=== PATIENT | female | born 1985 | race Caucasian/White ===

== ENCOUNTER → 2017-07-01 | Outpatient (CLI) | payer OTHER ==
[2017-07-01 15:14] LABS: BASO % 0.4 % (0.0-1.0); EOS # 0.2 10^3/uL (0.0-0.50); EOS % 2.3 % (0.0-3.0); IMMATURE GRANULOCYTE % 0.2 % (0-0); LYMPH # 3.5 10^3/uL (1.5-4.5); LYMPH % 34.2 % (24.0-44.0); MEAN CORPUSCULAR HEMOGLOBIN 29.6 pg (27.0-33.0); MEAN CORPUSCULAR HGB CONC 33.7 g/dl (32.0-36.5); MEAN CORPUSCULAR VOLUME 87.9 fl (80.0-96.0); MONO # 0.7 10^3/uL (0.0-0.8); MONO % 7.2 % (0.0-5.0); NEUTROPHILS # 5.7 10^3/uL (1.8-7.7); NEUTROPHILS % 55.7 % (36.0-66.0); PLATELET COUNT, AUTOMATED 319 10^3/uL (150-450); RED CELL DISTRIBUTION WIDTH 12.1 % (11.5-14.5); WHITE BLOOD COUNT 10.2 10^3/uL (4.0-10.0)
[2017-07-01 15:32] LABS: FREE T4 1.04 NG/DL (0.76-1.46)
== END ==
LOC: M LAB 14:12
PROVIDERS: ATTEND Nurse Practitioner Women's Health
DX: R53.83 Other fatigue (principal)

== ENCOUNTER → 2017-11-25 | Outpatient (CLI) | payer OTHER | LOC: M WUC 16:07 | DX: J22 Unspecified acute lower respiratory infection (principal) | CPT/HCPCS: G0463 ==

== ENCOUNTER 2017-12-12 14:01 | Emergency (ER) | payer OTHER | END 2017-12-12 16:12 | disposition home or self-care (01) | LOC: M ED 14:01 | DX: J06.9 Acute upper respiratory infection, unspecified (principal); R07.81 Pleurodynia; Z87.09 Personal history of other diseases of the respiratory system | CPT/HCPCS: 71046 ==

== ENCOUNTER → 2018-03-15 | Outpatient (CLI) | payer OTHER ==
[2018-03-15 16:49] LABS: CONTROL LINE HCG INT CTR LINE PRESENT; HCG, SERUM QUALITATIVE NEGATIVE (NEGATIVE)
[2018-03-15 16:54] LABS: BASO % 0.4 % (0.0-1.0); EOS # 0.2 10^3/uL (0.0-0.50); EOS % 2.1 % (0.0-3.0); HEMATOCRIT 41.1 % (36.0-47.0); HEMOGLOBIN 13.7 g/dl (12.0-15.5); IMMATURE GRANULOCYTE % 0.3 % (0-3.0); LYMPH # 2.7 10^3/uL (1.5-4.5); LYMPH % 37.3 % (24.0-44.0); MEAN CORPUSCULAR HEMOGLOBIN 29.5 pg (27.0-33.0); MEAN CORPUSCULAR HGB CONC 33.3 g/dl (32.0-36.5); MEAN CORPUSCULAR VOLUME 88.4 fl (80.0-96.0); MONO # 0.6 10^3/uL (0.0-0.8); MONO % 8.1 % (0.0-5.0); NEUTROPHILS # 3.8 10^3/uL (1.8-7.7); NEUTROPHILS % 51.8 % (36.0-66.0); PLATELET COUNT, AUTOMATED 338 10^3/uL (150-450); RED BLOOD COUNT 4.65 10^6/uL (4.00-5.40); RED CELL DISTRIBUTION WIDTH 12.2 % (11.5-14.5); WHITE BLOOD COUNT 7.3 10^3/uL (4.0-10.0)
[2018-03-15 17:00] LABS: PROLACTIN 6.7 NG/ML
[2018-03-15 17:11] LABS: FREE T4 1.18 NG/DL (0.76-1.46)
== END ==
LOC: M WUC 14:37
DX: N92.1 Excessive and frequent menstruation with irregular cycle (principal)
CPT/HCPCS: 84146

== ENCOUNTER → 2019-03-29 | Outpatient (CLI) | payer OTHER ==
[~2019-03-29] MED LIST: BROMSYP7 PO; NORC1TAB7 PO; ZITHTAB PO
--- NOTE | 2019-03-30 08:41 | REP ---
REASON: Pain. No trauma. No priors. FINDINGS: No acute fracture or destructive osseous lesion. Electronically Signed by Chung Bacon DO 03/30/2019 09:47 A
== END ==
LOC: M WUC 15:01
PROVIDERS: ATTEND Physician Assistant
DX: M25.531 Pain in right wrist (principal)

== ENCOUNTER → 2019-07-02 | Outpatient (CLI) | payer OTHER ==
[2019-07-02 19:06] LABS: BASO % 0.2 % (0.0-1.0); EOS # 0.2 10^3/uL (0.0-0.5); EOS % 1.8 % (0.0-3.0); HEMATOCRIT 38.8 % (36.0-47.0); HEMOGLOBIN 12.6 g/dl (12.0-15.5); LYMPH % 24.2 % (24.0-44.0); MEAN CORPUSCULAR HEMOGLOBIN 30.4 pg (27.0-33.0); MEAN CORPUSCULAR HGB CONC 32.5 g/dl (32.0-36.5); MEAN CORPUSCULAR VOLUME 93.5 fl (80.0-96.0); MONO # 0.7 10^3/uL (0.0-0.8); NEUTROPHILS # 5.5 10^3/uL (1.5-8.5); NEUTROPHILS % 65.6 % (36.0-66.0); PLATELET COUNT, AUTOMATED 303 10^3/uL (150-450); RED BLOOD COUNT 4.15 10^6/uL (4.00-5.40); WHITE BLOOD COUNT 8.4 10^3/uL (4.0-10.0)
[2019-07-02 21:22] LABS: CHLAMYDIA DNA AMPLIFICATION NEGATIVE (NEGATIVE); GC DNA AMPLIFICATION NEGATIVE (NEGATIVE)
[2019-07-04 11:11] LABS: HIV 1&2 SCREEN CENTAUR NEGATIVE (NEGATIVE); RUBELLA IgG QUALITATIVE IMMUNE (IMMUNE)
== END ==
LOC: M LRY 10:05
PROVIDERS: ATTEND Advanced Practice Midwife
DX: Z34.81 Encounter for supervision of other normal pregnancy, first trimester (principal); Z36.89 Encounter for other specified antenatal screening

== ENCOUNTER → 2019-08-25 | Outpatient (CLI) | payer OTHER ==
--- NOTE | 2019-08-26 02:37 | REP ---
Clinical: Anatomical evaluation. Comparison: None . Findings: Examination demonstrates a single live intrauterine in breech presentation. motion is identified by technologist. Placenta is noted posterior and grade I without evidence for placenta previa or abruption. Amniotic fluid volume is normal. Cervix measures 4.4 cm in length and appears closed. Nuchal cord noted. Gestational age by LMP 19 weeks 6 days with CORRINE 01/13/2020. Gestational age by current measurements 20 weeks 1 day with CORRINE 01/11/2020 . FHR equals 136 beats per minute. BPD 4.6 cm 19 weeks 6 days HC 17.6 cm 20 weeks 1 day AC 15.5 cm 20 weeks 5 days FL 3.2 cm 20 weeks 0 days HL 3.1 cm 20 weeks 2 days HC/AC ratio 1.13 Estimated weight 346 grams ( 62nd percentile). Anatomical assessment demonstrates normal structures including cranium, choroid plexus, cavum, cerebellum/posterior fossa, diaphragm, stomach, cord insertion/three-vessel cord, kidneys/bladder, spine, and extremities. Limited evaluation of the facial features, lungs, four-chamber heart/ventricular outflow tract. Impression: 1. Single live intrauterine in breech presentation demonstrating appropriate interval growth. 2. nuchal cord noted. 3. Anatomical limitations as noted above warrant reevaluation and follow-up. Electronically Signed by Carlos Manuel Schmidt MD 08/26/2019 02:28 A
== END ==
LOC: M RAD 10:48
PROVIDERS: ATTEND Specialist
DX: O32.1XX0 Maternal care for breech presentation, not applicable or unspecified (principal); Z36.89 Encounter for other specified antenatal screening; Z3A.19 19 weeks gestation of pregnancy

== ENCOUNTER → 2019-10-07 | Outpatient (CLI) | payer OTHER ==
--- NOTE | 2019-10-07 14:08 | REP ---
Clinical: Anatomical evaluation. Comparison: 08/25/2019 . Findings: Examination demonstrates a single live intrauterine in transverse (head to maternal right) presentation. motion is identified by technologist. Placenta is noted posterior and grade air I without evidence for placenta previa or abruption. Amniotic fluid volume is normal. Cervix measures 4.1 cm in length and appears closed. No evidence for nuchal cord. Gestational age by LMP 26 weeks 0 days with CORRINE 01/13/2020 . Gestational age by current measurements 26 weeks 0 days with CORRINE 01/13/2020 . FHR equals 132 beats per minute. Estimated weight 905 grams ( 47th percentile). Anatomical assessment demonstrates normal structures including cranium, facial features, four-chamber heart, diaphragm, stomach, cord insertion/three-vessel cord, kidneys/bladder, and spine. Impression: Single live intrauterine in transverse lie demonstrating appropriate interval growth. Cardiac ventricular outflow tracts are again limited in evaluation due to positioning. In conjunction with prior examination the remainder of the anatomical assessment is complete and normal.
== END ==
LOC: M WHC 12:39
PROVIDERS: ATTEND Specialist
DX: O32.2XX0 Maternal care for transverse and oblique lie, not applicable or unspecified (principal); Z36.2 Encounter for other antenatal screening follow-up; Z3A.26 26 weeks gestation of pregnancy

== ENCOUNTER 2019-10-21 11:58 | Outpatient (CLI) | payer OTHER ==
[~2019-10-21] VITALS: Ht 167.6 cm; Wt 99.9 kg
[2019-10-21 12:20] VITALS: BP 129/74
[2019-10-21] MEDS ORDERED: MAPA500T2 PO (12:26)
[2019-10-21] MEDS ORDERED: PRENTAB9 PO (12:26)
[2019-10-21] MEDS ORDERED: TUMS750C5 PO (12:27)
--- NOTE | 2019-10-21 13:16 | IPNPDOC ---
Text Note Date of Service The patient was seen on 10/21/19. NOTE Triage Subjective: Patient is a 34-year-old, at 28.0wk gestation. Presents to labor and delivery complaining of constant low back pain radiating to bilateral low abdominal/pelvic pain that started while at work this morning. Patient has not taken anything for her pain. 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 Denies recent injury or muscle strain. Reports positive movement, denies uterine contractions, denies vaginal bleeding, reports occasional leakage of fluid/vaginal discharge. Denies pain with urination. Denies fever and chills. Objective: Alert and oriented x3, abdomen initially tight, softened with round ligament release. Sterile speculum exam showed cervix thick/long/closed, fibronectin collected. FHR 135 with moderate variability, decelerations absent. Occasional mild uterine contractions, patient unaware. Assessment: Round ligament pain, FHR category 1. Plan: Urine sample collected and sent. PO Tylenol for pain. Reviewed proper body mechanics, supportive shoes, support belt. fibronectin collected and sent. Anticipate pain improvement and discharge. VS,Fishbone, I+O VS, Fishbone, I+O Vital Signs Date Time Temp Pulse Resp B/P (MAP) Pulse Ox O2 Delivery O2 Flow Rate FiO2 10/21/19 12:20 98.8 96 16 129/74 (92) 98 Room Air Ange Tena CNM Oct 21, 2019 13:06
[2019-10-21 13:26] LABS: APPEARANCE, URINE CLEAR (CLEAR); BACTERIA, URINE AUTO NEGATIVE (NEGATIVE); BILIRUBIN, URINE AUTO NEGATIVE (NEGATIVE); BLOOD, URINE BLOOD NEGATIVE (NEGATIVE); COLOR, URINE STRAW (YELLOW); GLUCOSE, URINE (UA) AUTO NEGATIVE (NEGATIVE); KETONE, URINE AUTO NEGATIVE (NEGATIVE); LEUKOCYTE ESTERASE, URINE AUTO NEGATIVE (NEGATIVE); NITRITE, URINE AUTO NEGATIVE (NEGATIVE); PROTEIN, URINE AUTO NEGATIVE (NEGATIVE); RBC, URINE AUTO 0 /HPF (0-3); SPECIFIC GRAVITY URINE AUTO 1.003 (1.002-1.035); SQUAMOUS EPITHELIAL CELL UR AU 2 /HPF (0-6); UROBILINOGEN, URINE AUTO 0.2 mg/dL (0.0-2.0); WBC, URINE AUTO 1 /HPF (0-3)
[2019-10-21] MEDS ORDERED: ACETAMINOPHEN 500 MG TAB PO ONE (14:00)
[2019-10-21 14:28] VITALS: BP 126/73
[2019-10-21 15:21] VITALS: BP 122/82
--- NOTE | 2019-10-21 15:26 | IPNPDOC ---
Text Note Date of Service The patient was seen on 10/21/19. NOTE Triage Progress Subjective: Patient reports pain improved and states she is feeling more comfortable. Reports positive movement, denies contractions, leakage of fluid or vaginal bleeding. Objective: Alert and oriented x3, appears calm and without distress; abdomen soft. FHR 135, moderate variability. Accelerations present, decelerations absent. Rare contractions, unfelt by patient. FFN and urinalysis negative. Assessment: SIUP @ 28.0wk gestation, round ligament pain. FHR category 1. Plan: Increase oral fluid intake. Discussed proper body mechanics, supportive shoes, use of maternity belt. PO Tylenol every 6 hours PRN. Keep OB appointment later this month. Reviewed access to care, kick counts, danger signs. Patient verbalized understanding of instructions. VS,Fishbone, I+O VS, Fishbone, I+O Vital Signs Date Time Temp Pulse Resp B/P (MAP) Pulse Ox O2 Delivery O2 Flow Rate FiO2 10/21/19 14:28 93 20 126/73 (90) 10/21/19 12:20 98.8 98 Room Air Ange Tena CNM Oct 21, 2019 15:26
== END 2019-10-21 15:48 | disposition home or self-care (01) ==
LOC: M LDO 11:58
PROVIDERS: ATTEND Advanced Practice Midwife
DX: O26.893 Other specified pregnancy related conditions, third trimester (principal); M54.5 Low back pain; R10.2 Pelvic and perineal pain; Z3A.28 28 weeks gestation of pregnancy
CPT/HCPCS: 81001; 82731; 87086; G0378; G0463

== ENCOUNTER → 2019-10-22 | Outpatient (REF) | payer OTHER ==
[~2019-10-22] MED LIST changes: +MAPA500T2 PO; +PRENTAB9 PO; +TUMS750C5 PO
[2019-10-22 19:07] LABS: HEMATOCRIT 35.3 % (36.0-47.0); HEMOGLOBIN 11.5 g/dl (12.0-15.5); MEAN CORPUSCULAR HEMOGLOBIN 30.8 pg (27.0-33.0); MEAN CORPUSCULAR HGB CONC 32.6 g/dl (32.0-36.5); MEAN CORPUSCULAR VOLUME 94.6 fl (80.0-96.0); PLATELET COUNT, AUTOMATED 281 10^3/uL (150-450); RED BLOOD COUNT 3.73 10^6/uL (4.00-5.40); WHITE BLOOD COUNT 9.5 10^3/uL (4.0-10.0)
== END ==
LOC: M PLALAB 10:04
PROVIDERS: ATTEND Specialist
DX: Z34.82 Encounter for supervision of other normal pregnancy, second trimester (principal); Z36.89 Encounter for other specified antenatal screening

== ENCOUNTER → 2019-12-07 | Outpatient (CLI) | payer OTHER ==
--- NOTE | 2019-12-07 17:49 | REP ---
Clinical: Growth evaluation. Comparison: 10/07/2019 . Findings: Examination demonstrates a single live intrauterine in cephalic presentation. motion is identified by technologist. Placenta is noted posterior and grade I I without evidence for placenta previa or abruption. Amniotic fluid volume is normal. Cervix measures 3.0 cm in length and appears closed. No evidence for nuchal cord. Gestational age by LMP 34 weeks 5 days with CORRINE 01/13/2020 . Gestational age by current measurements 35 weeks 2 days with CORRINE 01/09/2020 . FHR equals 150 beats per minute. Estimated weight by current biometrical measurements 2726 grams ( 64th percentile). Amniotic fluid index: 15.0 cm Limited anatomical assessment is unremarkable. Four-chamber heart and cardiac ventricular outflow tracts identified and normal. Impression: Single live intrauterine in cephalic presentation demonstrating appropriate estimated weight and growth. In conjunction with prior examination anatomical assessment appears complete and normal.
== END ==
LOC: M WHC 13:32
PROVIDERS: ATTEND Obstetrics & Gynecology
DX: O26.843 Uterine size-date discrepancy, third trimester (principal)

== ENCOUNTER → 2019-12-14 | Outpatient (REF) | payer OTHER | LOC: M SFHCWAGY 17:55 | PROVIDERS: ATTEND Obstetrics & Gynecology | DX: Z3A.35 35 weeks gestation of pregnancy (principal) ==

== ENCOUNTER 2019-12-29 00:54 | Outpatient (CLI) | payer OTHER ==
[~2019-12-29] VITALS: Ht 167.6 cm; Wt 107.9 kg
[~2019-12-29 00:54] MED LIST changes: +BENA25CA4 PO; +LIDO5DIS41 TD; +OMEP40CA97 PO
[2019-12-29 01:08] VITALS: BP 142/86
--- NOTE | 2019-12-29 08:32 | IPN ---
DATE: 12/29/2019 Leni is a 34-year-old, 2, para 1-0-0-1. She is 37 weeks and 6 days gestation, expected date of confinement (EDC) of 01/13/2020 based on last menstrual period and confirmed by first trimester ultrasound, who presents to labor and delivery today with report of question spontaneous rupture of membranes at approximately 2300. She denies vaginal bleeding and no painful contractions. She does report her panty liner was damp upon arrival. The fetus has been active. Her care was [facility] in the first trimester. 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 OBSTETRICAL HISTORY: September 2011, 38-4/7 weeks, 6 pounds 8 ounces, vaginal delivery, for a live male fetus. OBSTETRIC LABS: A+. Antibody screen negative. Rubella immune. RPR negative. Hepatitis B surface antigen negative. Hepatitis C antibody negative. HIV negative. Gonorrhea and chlamydia negative. Urine culture negative. Gestational diabetic screening normal at 110. Her GBS is negative. PAST MEDICAL HISTORY: Mid brain cyst. SURGERIES: Tonsillectomy with adenoidectomy, wisdom tooth extraction, colposcopy. FAMILY HISTORY: Diabetes, hypertension, heart disease, anxiety. SOCIAL HISTORY: The patient is . She is a nonsmoker. She denies alcohol and drug use. Denies history of abuse - physical, sexual and emotional. ALLERGIES: No known drug allergies. CURRENT MEDICATIONS: vitamins. OBJECTIVE: Temperature 97.8, pulse 106, respirations 18, blood pressure 129/78. heart rate is 130, with moderate variability, positive accelerations, and no decelerations noted. There is no pattern of regular contractions. The patient is smiling and talkative. Sterile Speculum Exam: Negative Valsalva, negative pooling, negative Nitrazine, and negative ferning. Sterile Vaginal Exam: Fingertip dilated, thick, ballottable station. ASSESSMENT: Intrauterine at 37-6/7 weeks. heart rate category one. Not ruptured. PLAN: Discharge the patient home. She is to keep her scheduled appointment on Thursday with Dr. Rosario as scheduled. I did review signs and symptoms of labor, movement counts, access to labor, as well as danger signs. The patient has had her questions answered and is agreeable to plan.
== END 2019-12-29 01:55 | disposition home or self-care (01) ==
LOC: M LDO 00:54
PROVIDERS: ATTEND Advanced Practice Midwife
DX: O99.353 Diseases of the nervous system complicating pregnancy, third trimester (principal); G93.0 Cerebral cysts; Z3A.37 37 weeks gestation of pregnancy
CPT/HCPCS: 59025; G0378; G0463

== ENCOUNTER → 2020-01-03 | Outpatient (CLI) | payer OTHER, SELFPAY ==
[~2020-01-03] MED LIST changes: +IBUP80TA PO; +OXYC1TAB23 PO
== END ==
LOC: M LABSMTC 10:56
PROVIDERS: ATTEND Anesthesiology
DX: Z03.818 Encounter for observation for suspected exposure to other biological agents ruled out (principal); Z11.59 Encounter for screening for other viral diseases

== ENCOUNTER 2020-01-06 05:11 | Inpatient (IN) | payer OTHER ==
[2020-01-06] VITALS (8 sets, daily range): BP systolic 116–128; BP diastolic 60–83
[~2020-01-06] VITALS: Ht 167.6 cm; Wt 106.6 kg
[~2020-01-06 05:11] MED LIST changes: -IBUP80TA PO; -OXYC1TAB23 PO
[2020-01-06] MEDS ORDERED: BICITRA 30ML SOLN UDC PO ONE (05:30)
[2020-01-06] MEDS ORDERED: LR 1,000 ML IV SCH ×2 (05:30→09:15)
[2020-01-06] MEDS ORDERED: ceFAZolin SOD 2 GM in IV 1 EA IV ONE (05:30)
[2020-01-06] MEDS ORDERED: LR 1,000 ML IV ONE (05:30)
[2020-01-06 05:47] LABS: HEMATOCRIT 34.2 % (36.0-47.0); HEMOGLOBIN 11.5 g/dl (12.0-15.5); MEAN CORPUSCULAR HEMOGLOBIN 29.9 pg (27.0-33.0); MEAN CORPUSCULAR HGB CONC 33.6 g/dl (32.0-36.5); MEAN CORPUSCULAR VOLUME 89.1 fl (80.0-96.0); PLATELET COUNT, AUTOMATED 234 10^3/uL (150-450); RED BLOOD COUNT 3.84 10^6/uL (4.00-5.40); WHITE BLOOD COUNT 12.6 10^3/uL (4.0-10.0)
[2020-01-06] MEDS ORDERED: PHENYLephrine HCL 500 MCG/5 ML (100MCG/ML) SYRINGE (J2370) As Ordered ONE (06:54)
[2020-01-06] MEDS ORDERED: ePHEDrine SULFATE 25 MG/5 ML(5MG/ML) SYRINGE As Ordered ONE (06:54)
[2020-01-06] MEDS ORDERED: OXYTOCIN INJ 10 UNITS/ML VIAL (J2590) As Ordered ONE (06:55)
[2020-01-06] MEDS ORDERED: OXYTOCIN 30 UNITS IN 0.9% NaCl 500ML IV BAG (J2590) As Ordered ONE ×2 (06:55→09:41)
[2020-01-06] MEDS ORDERED: ONDANSETRON 4MG/2ML VIAL As Ordered ONE (06:56)
[2020-01-06] MEDS ORDERED: dexameTHASONE 4 MG/ML 1ML VIAL (J1100 PER 1MG) As Ordered ONE (06:56)
[2020-01-06] MEDS ORDERED: KETOROLAC 60 MG/2 ML VIAL As Ordered ONE (06:56)
[2020-01-06] MEDS ORDERED: MORPHINE PRES-FREE INJ 10 MG/10 ML VIAL (J2274) As Ordered ONE (07:15)
[2020-01-06] MEDS ORDERED: diphenhydrAMINE 50MG/ML VIAL (J1200) As Ordered ONE (07:18)
[2020-01-06] MEDS ORDERED: MIDAZOLAM INJ 2MG/2ML VIAL (J2250 PER 1MG) As Ordered ONE (07:21)
[2020-01-06] MEDS ORDERED: diphenhydrAMINE 50MG/ML VIAL (J1200) IV PRN (07:39)
[2020-01-06] MEDS ORDERED: ONDANSETRON 4MG/2ML VIAL IV PRN ×3 (07:39→09:15)
[2020-01-06] MEDS ORDERED: NALOXONE INJ 0.4MG/1ML VIAL (J2310 PER 1MG) IV PRN ×2 (07:39)
[2020-01-06] MEDS ORDERED: NALBUPHINE HCL 10 MG/ML AMP (J2300) IV PRN (07:39)
[2020-01-06] MEDS ORDERED: METOCLOPRAMIDE INJ 10MG/2ML VIAL (J2765 PER 1) IV PRN ×2 (07:39→09:15)
[2020-01-06] MEDS ORDERED: OXYTOCIN DRIP 30 UNITS in IV 1 EA IV SCH (08:38)
[2020-01-06] MEDS ORDERED: MEASLES,MUMPS,RUBELLA VACCINE INJ (MMR-II) (90707) SC SCH (08:45)
[2020-01-06] MEDS ORDERED: PROMETHAZINE 25 MG TAB PO PRN (08:45)
[2020-01-06] MEDS ORDERED: RHOGAM 300 MCG (1500 IU) INJ (J2790) IM SCH (08:45)
[2020-01-06] MEDS ORDERED: ACETAMINOPHEN 500 MG TAB PO PRN (08:45)
[2020-01-06] MEDS: PRENATAL VITAMINS CHEWABLE TABLET PO SCH (09:00)
[2020-01-06] MEDS ORDERED: PERCOCET 5MG/325MG TAB PO PRN (09:15)
[2020-01-06] MEDS ORDERED: fentaNYL 100 MCG/2 ML INJECTION (J3010) IV PRN (09:15)
[2020-01-06] MEDS ORDERED: fentaNYL 100 MCG/2 ML INJECTION (J3010) As Ordered ONE (10:12)
[2020-01-06] MEDS: PERCOCET 5MG/325MG TAB PO PRN ×2 (11:30→18:52)
[2020-01-06] MEDS: KETOROLAC 30 MG/ML 1ML VIAL IV SCH ×2 (14:00→19:36)
[2020-01-06] MEDS: DOCUSATE SODIUM 100 MG CAP PO SCH (22:01)
[2020-01-07] MEDS: PERCOCET 5MG/325MG TAB PO PRN ×4 (00:25→19:33)
[2020-01-07 02:00] VITALS: BP 123/69
[2020-01-07] MEDS: KETOROLAC 30 MG/ML 1ML VIAL IV SCH (02:07)
[2020-01-07 06:00] VITALS: BP 110/63
[2020-01-07 06:41] LABS: MEAN CORPUSCULAR HEMOGLOBIN 30.6 pg (27.0-33.0); MEAN CORPUSCULAR HGB CONC 33.6 g/dl (32.0-36.5); MEAN CORPUSCULAR VOLUME 91.2 fl (80.0-96.0); PLATELET COUNT, AUTOMATED 194 10^3/uL (150-450); RED BLOOD COUNT 3.07 10^6/uL (4.00-5.40); WHITE BLOOD COUNT 12.5 10^3/uL (4.0-10.0)
[2020-01-07 06:52] LABS: HEMOGLOBIN 9.4 g/dl (12.0-15.5)
--- NOTE | 2020-01-07 06:57 | IPNPDOC ---
Text Note Date of Service The patient was seen on 01/07/20. NOTE Postop Feels well. Adequate pain management. Voiding VSS, afebrile and normotensive Breasts soft Fundus firm, NT Dressing intact Lochia rubra scant without odor PO #1 Routine care. Anticipate D/C in am VS,Fishbone, I+O VS, Fishbone, I+O Laboratory Tests 01/07/20 06:26 Vital Signs Date Time Temp Pulse Resp B/P (MAP) Pulse Ox O2 Delivery O2 Flow Rate FiO2 01/07/20 06:00 97.5 82 17 110/63 (79) 97 Room Air I&O- Last 24 Hours up to 6 AM 01/07/20 06:00 Intake Total 4550 ml Output Total 3600 ml Balance 950 ml Ange Tena CNM January 07, 2020 06:57
[2020-01-07] MEDS: PRENATAL VITAMINS CHEWABLE TABLET PO SCH (08:43)
[2020-01-07] MEDS: DOCUSATE SODIUM 100 MG CAP PO SCH ×2 (08:43→20:31)
[2020-01-07] MEDS: IBUPROFEN 800 MG TAB PO SCH ×2 (10:38→17:12)
[2020-01-07 18:00] VITALS: BP 125/75
[2020-01-07 22:00] VITALS: BP 133/75
[2020-01-08] MEDS: IBUPROFEN 800 MG TAB PO SCH ×2 (01:25→09:04)
[2020-01-08 02:16] VITALS: BP 133/75
[2020-01-08] MEDS: PERCOCET 5MG/325MG TAB PO PRN ×2 (05:56→11:58)
[2020-01-08 06:42] VITALS: BP 125/75
[2020-01-08] MEDS: PRENATAL VITAMINS CHEWABLE TABLET PO SCH (08:23)
[2020-01-08] MEDS: DOCUSATE SODIUM 100 MG CAP PO SCH (08:23)
[2020-01-08] MEDS ORDERED: OXYC1TAB23 PO (09:35)
[2020-01-08] MEDS ORDERED: IBUP80TA PO (09:36)
[2020-01-08 10:00] VITALS: BP 112/66
--- NOTE | 2020-01-11 18:24 | DSES ---
DATE OF ADMISSION: 01/06/2020 DATE OF DISCHARGE: 01/08/2020 A 34-year-old (G) 2, para (P) 1 female at 39 weeks gestation who presents for primary section. The indication for section is a brain cyst diagnosed prior to . Primary section was recommended by her neurologist. HOSPITAL COURSE: On 01/06/2020, the patient underwent a primary section for an 8-pound, 4-ounce infant. There were no complications. Her postoperative course was unremarkable. She had adequate return of bladder and bowel function. Her postoperative hemoglobin was 9.4 grams/dL. The patient also had tubal sterilization performed at the time of the section. She was deemed stable for discharge on postoperative day number two. ADMISSION DIAGNOSES: 1. at 39 weeks. 2. History of intracranial mass. POSTDELIVERY DIAGNOSIS: Delivered. PROCEDURE: Primary low transverse section, bilateral tubal ligation. DISPOSITION: The patient will followup with Dr. Rosario in two weeks. Instructions were reviewed.
== END 2020-01-08 12:55 | disposition home or self-care (01) | DRG 785 ==
LOC: M LDI 05:11 → M OBS 10:33
PROVIDERS: ADMIT Obstetrics & Gynecology; ATTEND Obstetrics & Gynecology
PROC: 0UB70ZZ Excision of Bilateral Fallopian Tubes, Open Approach (ICD-10-PCS; 2020-01-06)
PROC: 10D00Z1 Extraction of Products of Conception, Low, Open Approach (ICD-10-PCS; principal; 2020-01-06 07:30)
DX: O99.354 Diseases of the nervous system complicating childbirth (principal); G93.0 Cerebral cysts; Z37.0 Single live birth; Z3A.39 39 weeks gestation of pregnancy

== ENCOUNTER → 2022-03-05 | Outpatient (CLI) | payer OTHER, SELFPAY ==
[~2022-03-05] MED LIST changes: +IBUP80TA PO; +OMEP40CA4 PO; -OMEP40CA97 PO; +OXYC1TAB23 PO
== END ==
LOC: M WHC 10:41
PROVIDERS: ATTEND Obstetrics & Gynecology
DX: R10.2 Pelvic and perineal pain (principal); N85.2 Hypertrophy of uterus; N85.4 Malposition of uterus

== ENCOUNTER → 2023-01-20 | Outpatient (CLI) | payer OTHER | LOC: M SOG 11:51 | PROVIDERS: ATTEND Orthopaedic Surgery Hand Surgery | DX: M25.531 Pain in right wrist (principal); M25.532 Pain in left wrist ==

== ENCOUNTER → 2023-02-12 | Outpatient (REF) | payer OTHER | LOC: M SFHCWAGY 13:46 | PROVIDERS: ATTEND Obstetrics & Gynecology | DX: Z12.4 Encounter for screening for malignant neoplasm of cervix (principal) | CPT/HCPCS: 87624; G0123 ==

== ENCOUNTER → 2024-01-25 | Outpatient (CLI) | payer OTHER ==
[~2024-01-25] MED LIST changes: +BROM118S38 PO; -BROMSYP7 PO
[2024-01-25 14:13] LABS: BASO # 0.1 10^3/uL (0.0-0.2); BASO % 0.8 % (0.0-1.0); EOS # 0.2 10^3/uL (0.0-0.5); EOS % 2.9 % (0.0-3.0); HEMATOCRIT 40.4 % (36.0-47.0); HEMOGLOBIN 13.7 g/dl (12.0-15.5); LYMPH # 2.4 10^3/uL (1.5-5.0); LYMPH % 35.9 % (24.0-44.0); MEAN CORPUSCULAR HEMOGLOBIN 30.4 pg (27.0-33.0); MEAN CORPUSCULAR HGB CONC 33.9 g/dl (32.0-36.5); MEAN CORPUSCULAR VOLUME 89.6 fl (80.0-96.0); MONO # 0.5 10^3/uL (0.0-0.8); MONO % 7.4 % (2.0-8.0); NEUTROPHILS # 3.5 10^3/uL (1.5-8.5); NEUTROPHILS % 52.7 % (36.0-66.0); PLATELET COUNT, AUTOMATED 317 10^3/uL (150-450); RED BLOOD COUNT 4.51 10^6/uL (4.00-5.40); WHITE BLOOD COUNT 6.6 10^3/uL (4.0-10.0)
[2024-01-25 14:36] LABS: HEMOGLOBIN A1c 5.1 % (4.0-6.0)
[2024-01-25 14:41] LABS: FREE T4 1.37 NG/DL (0.89-1.76)
[2024-01-25 14:42] LABS: THYROID STIMULATING HORMONE 0.895 uIU/ML (0.55-4.78)
[2024-01-25 14:44] LABS: ALBUMIN 3.9 G/DL (3.2-5.2); ALKALINE PHOSPHATASE 66 U/L (46-116); ALT/SGPT 15 U/L (7.0-40); AST/SGOT < 8 U/L (<34); BILIRUBIN,TOTAL 0.6 MG/DL (0.3-1.2); BLOOD UREA NITROGEN 13 MG/DL (9-23); CARBON DIOXIDE LEVEL 25 MMOL/L (20-31); CHLORIDE LEVEL 105 MMOL/L (98-107); CHOLESTEROL LEVEL 198 MG/DL (<200); CHOLESTEROL RISK RATIO 3.25 (<5); GLOMERULAR FILTRATION RATE > 60.0 (>60); GLUCOSE, FASTING 82 MG/DL (60-100); HDL CHOLESTEROL 60.9 MG/DL (>40); LDL CHOLESTEROL 106.7 MG/DL (<100); NON-HDL-C 137.1 MG/DL; POTASSIUM SERUM 4.5 MMOL/L (3.5-5.1); SODIUM LEVEL 137 MMOL/L (136-145); TOTAL PROTEIN 7.1 G/DL (5.7-8.2); TRIGLYCERIDES LEVEL 152 MG/DL (<150)
== END ==
LOC: M WUC 09:47
PROVIDERS: ATTEND Physician Assistant
DX: F41.1 Generalized anxiety disorder (principal); E66.9 Obesity, unspecified; Z68.37 Body mass index [BMI] 37.0-37.9, adult

== ENCOUNTER 2024-05-27 15:18 | Emergency (ER) | payer OTHER ==
[~2024-05-27] VITALS: Ht 167.6 cm; Wt 92.3 kg
[2024-05-27 16:04] LABS: BASO # 0.1 10^3/uL (0.0-0.2); BASO % 0.6 % (0.0-1.0); EOS # 0.2 10^3/uL (0.0-0.5); EOS % 2.8 % (0.0-3.0); HEMATOCRIT 41.7 % (36.0-47.0); HEMOGLOBIN 14.3 g/dl (12.0-15.5); LYMPH # 2.7 10^3/uL (1.5-5.0); LYMPH % 34.1 % (24.0-44.0); MEAN CORPUSCULAR HEMOGLOBIN 30.4 pg (27.0-33.0); MEAN CORPUSCULAR HGB CONC 34.3 g/dl (32.0-36.5); MEAN CORPUSCULAR VOLUME 88.7 fl (80.0-96.0); MONO # 0.7 10^3/uL (0.0-0.8); MONO % 8.8 % (2.0-8.0); NEUTROPHILS # 4.2 10^3/uL (1.5-8.5); NEUTROPHILS % 53.6 % (36.0-66.0); PLATELET COUNT, AUTOMATED 379 10^3/uL (150-450); WHITE BLOOD COUNT 7.8 10^3/uL (4.0-10.0)
[2024-05-27 16:15] LABS: INR 0.98; PROTHROMBIN TIME 12.7 SECONDS (12.5-14.5)
[2024-05-27 16:30] LABS: LIPASE 39 U/L (12-53)
[2024-05-27 16:32] LABS: CPK CREATINE PHOSPHOKINASE 106 U/L (34-145)
[2024-05-27 16:35] LABS: ALBUMIN 4.3 G/DL (3.2-5.2); ALKALINE PHOSPHATASE 64 U/L (46-116); ALT/SGPT 12 U/L (7.0-40); AST/SGOT 10 U/L (<34); BILIRUBIN,DIRECT 0.1 MG/DL (<0.4); BILIRUBIN,TOTAL 0.5 MG/DL (0.3-1.2); BLOOD UREA NITROGEN 10 MG/DL (9-23); CALCIUM LEVEL 9.5 MG/DL (8.5-10.1); CARBON DIOXIDE LEVEL 26 MMOL/L (20-31); CHLORIDE LEVEL 106 MMOL/L (98-107); CK-MB VALUE MASS < 1.0 NG/ML (<3.6); CREATININE FOR GFR 0.61 MG/DL (0.55-1.30); GLOMERULAR FILTRATION RATE > 60.0 (>60); GLUCOSE, FASTING 92 MG/DL (60-100); MB/CK RELATIVE INDEX 0.94 (< OR =4); POTASSIUM SERUM 3.9 MMOL/L (3.5-5.1); SODIUM LEVEL 137 MMOL/L (136-145); TOTAL PROTEIN 7.5 G/DL (5.7-8.2)
[2024-05-27] MEDS ORDERED: ISOVUE-370 76% 100ML VIAL As Ordered ONE (17:42)
[2024-05-27 19:25] VITALS: BP 128/78; TEMP 98.8; O2SAT 100
== END 2024-05-27 19:26 | disposition home or self-care (01) ==
LOC: M ED 15:18
DX: R07.89 Other chest pain (principal); F41.9 Anxiety disorder, unspecified; G43.909 Migraine, unspecified, not intractable, without status migrainosus; R00.2 Palpitations; Z79.899 Other long term (current) drug therapy
CPT/HCPCS: 71045; 71275; 80048; 80076; 82550; 82553; 83690; 84484; 85025; 85610; 93005; 93041; 94760; 99285; Q9967

== ENCOUNTER → 2024-08-31 | Outpatient (REF) | payer OTHER ==
[2024-08-31 14:13] LABS: Trichomonas vaginalis (AMP) NOT DETECTED (NEGATIVE)
[2024-08-31 14:36] LABS: GC DNA AMPLIFICATION NEGATIVE (NEGATIVE)
== END ==
LOC: M SFHCWAGY 12:48
PROVIDERS: ATTEND Nurse Practitioner Family
DX: R10.2 Pelvic and perineal pain (principal); N94.10 Unspecified dyspareunia

== ENCOUNTER → 2025-07-18 | Outpatient (CLI) | payer OTHER ==
[~2025-07-18] MED LIST changes: +LIDO1ADH93 TD; -LIDO5DIS41 TD
== END ==
LOC: M PLALAB 14:19
PROVIDERS: ATTEND Obstetrics & Gynecology
DX: Z32.01 Encounter for pregnancy test, result positive (principal)

== ENCOUNTER → 2025-07-20 | Outpatient (CLI) | payer OTHER | LOC: M PLALAB 13:26 | PROVIDERS: ATTEND Obstetrics & Gynecology | DX: Z32.01 Encounter for pregnancy test, result positive (principal) ==

== ENCOUNTER 2025-07-21 14:12 | Emergency (ER) | payer OTHER ==
[~2025-07-21] VITALS: Ht 167.6 cm; Wt 85.0 kg
[2025-07-21 16:18] LABS: PLATELET COUNT, AUTOMATED 387 10^3/uL (150-450)
[2025-07-21 16:49] LABS: ALT/SGPT 13 U/L (7.0-40); AST/SGOT 15 U/L (<34); CALCIUM LEVEL 8.7 MG/DL (8.5-10.1); CARBON DIOXIDE LEVEL 25 MMOL/L (20-31); CHLORIDE LEVEL 105 MMOL/L (98-107); CREATININE FOR GFR 0.56 MG/DL (0.55-1.30); GLOMERULAR FILTRATION RATE > 90.0 (>58); POTASSIUM SERUM 3.8 MMOL/L (3.5-5.1); SODIUM LEVEL 140 MMOL/L (136-145)
[2025-07-21 17:27] VITALS: BP 138/86; TEMP 98.6
[2025-07-21 17:57] VITALS: O2SAT 93
[2025-07-21] MEDS: METHOTREXATE 50 MG/2 ML VIAL IM ONE (19:28)
== END 2025-07-21 20:48 | disposition home or self-care (01) ==
LOC: M ED 14:12
DX: O00.90 Unspecified ectopic pregnancy without intrauterine pregnancy (principal); F41.9 Anxiety disorder, unspecified; Z98.51 Tubal ligation status; G43.909 Migraine, unspecified, not intractable, without status migrainosus; Z79.899 Other long term (current) drug therapy
CPT/HCPCS: 36415; 80053; 85027; 96372; 99284; J9260

== ENCOUNTER → 2025-07-25 | Outpatient (CLI) | payer OTHER | LOC: M PLALAB 13:22 | PROVIDERS: ATTEND Obstetrics & Gynecology | DX: O00.101 Right tubal pregnancy without intrauterine pregnancy (principal) ==

== ENCOUNTER → 2025-07-28 | Outpatient (CLI) | payer OTHER | LOC: M PLALAB 12:53 | PROVIDERS: ATTEND Obstetrics & Gynecology | DX: O03.9 Complete or unspecified spontaneous abortion without complication (principal) ==

== ENCOUNTER → 2025-08-04 | Outpatient (CLI) | payer OTHER | LOC: M PLALAB 11:27 | PROVIDERS: ATTEND Obstetrics & Gynecology | DX: Z87.59 Personal history of other complications of pregnancy, childbirth and the puerperium (principal) ==

== ENCOUNTER 2025-08-12 08:58 | Emergency (ER) | payer OTHER ==
[~2025-08-12] VITALS: Ht 167.6 cm; Wt 88.2 kg
[2025-08-12 09:01] VITALS: BP 134/79; TEMP 97.1; O2SAT 100
[2025-08-12 10:05] LABS: BASO # 0.1 10^3/uL (0.0-0.2); BASO % 0.8 % (0.0-1.0); EOS # 0.1 10^3/uL (0.0-0.5); EOS % 2.2 % (0.0-3.0); LYMPH # 1.6 10^3/uL (1.5-5.0); LYMPH % 25.5 % (24.0-44.0); MONO # 0.5 10^3/uL (0.0-0.8); MONO % 7.2 % (2.0-8.0); NEUTROPHILS # 4.1 10^3/uL (1.5-8.5); NEUTROPHILS % 64.0 % (36.0-66.0); PLATELET COUNT, AUTOMATED 362 10^3/uL (150-450)
[2025-08-12] MEDS: ONDANSETRON 4MG/2ML VIAL IV ONE (10:27)
[2025-08-12 10:36] LABS: ALT/SGPT 17 U/L (7.0-40); AST/SGOT 18 U/L (<34); CALCIUM LEVEL 8.5 MG/DL (8.5-10.1); CARBON DIOXIDE LEVEL 26 MMOL/L (20-31); CHLORIDE LEVEL 103 MMOL/L (98-107); CREATININE FOR GFR 0.57 MG/DL (0.55-1.30); GLOMERULAR FILTRATION RATE > 90.0 (>58); POTASSIUM SERUM 4.4 MMOL/L (3.5-5.1); SODIUM LEVEL 137 MMOL/L (136-145)
[2025-08-12 10:42] LABS: HCG, SERUM QUALITATIVE POSITIVE (NEGATIVE)
[2025-08-12 11:07] LABS: HCG, SERUM QUANTITATIVE 304.0 MIU/ML (<4.2)
[2025-08-12] MEDS ORDERED: ISOVUE-370 76% 100 ML VIAL As Ordered ONE (11:40)
[2025-08-12] MEDS: KETOROLAC 30 MG/ML 1 ML VIAL IV ONE (13:10)
[2025-08-12] MEDS ORDERED: NAPR-837 PO (13:26)
== END 2025-08-12 13:51 | disposition home or self-care (01) ==
LOC: M ED 08:58
DX: N94.10 Unspecified dyspareunia (principal); N83.292 Other ovarian cyst, left side; F41.9 Anxiety disorder, unspecified; G43.909 Migraine, unspecified, not intractable, without status migrainosus; Z79.899 Other long term (current) drug therapy
CPT/HCPCS: 74177; 76856; 80048; 80076; 83690; 84702; 84703; 85025; 86850; 93976; 96374; 96375; 96376; 99284; J1885; J2405; J3010; Q9967